=== PATIENT | male | born 1970 | race Caucasian/White ===

== ENCOUNTER 2021-01-22 13:39 | Emergency (ER) | payer OTHER ==
[~2021-01-22] VITALS: Ht 188 cm; Wt 84.4 kg
--- NOTE | 2021-01-22 13:49 | NUR ---
name called at this time, no answer in lobby or outside
--- NOTE | 2021-01-22 14:00 | NUR ---
pt name called in lobby and outside, no answer at this time
[2021-01-22 14:15] VITALS: BP 155/80
--- NOTE | 2021-01-22 14:15 | NUR ---
pt returned back to lobby
--- NOTE | 2021-01-22 14:50 | NUR ---
ermd assessed in triage room at this time
[2021-01-22 15:07] VITALS: BP 155/80
--- NOTE | 2021-01-22 15:08 | NUR ---
Patient discharged with v/s stable. Written and verbal after care instructions given and explained. Patient verbalized understanding. Ambulatory with steady gait. All questions addressed prior to discharge. Advised to follow up with PMD.
== END 2021-01-22 15:05 | disposition home or self-care (01) ==
LOC: MED 13:39
DX: S09.90XA Unspecified injury of head, initial encounter (principal); F07.81 Postconcussional syndrome; F17.210 Nicotine dependence, cigarettes, uncomplicated; Z71.6 Tobacco abuse counseling; W03.XXXA Other fall on same level due to collision with another person, initial encounter; Y93.55 Activity, bike riding; Y92.89 Other specified places as the place of occurrence of the external cause; Y99.8 Other external cause status
CPT/HCPCS: 99281

== ENCOUNTER 2023-02-16 22:02 | Emergency (ER) | payer OTHER ==
[~2023-02-16] VITALS: Ht 182.9 cm; Wt 84.8 kg
[2023-02-16 22:15] VITALS: BP 128/85; PULSE 106; RESP 22; TEMP 99.3; O2SAT 99
[2023-02-16] MEDS ORDERED: ALBUTEROL 0.083% 2.5 MG/3 ML NEBU INH ONE (23:05)
[2023-02-16] MEDS ORDERED: ALBUTEROL HFA MDI 90 MCG/ACTUATION 8 GM INH ONE (23:05)
[2023-02-16] MEDS ORDERED: KETOROLAC 30 MG/ML VIAL IM ONE (23:05)
[2023-02-16 23:16] LABS: FLU A ANTIGEN negative (NEGATIVE); FLU B ANTIGEN NEGATIVE (NEGATIVE)
[2023-02-16 23:17] VITALS: PULSE 111; RESP 18; O2SAT 96
[2023-02-17] MEDS ORDERED: AZIT250T4 PO (00:21)
[2023-02-17] MEDS ORDERED: ALBU0.0912 IH (00:21)
[2023-02-17] MEDS ORDERED: AMOX1TAB8 PO (00:21)
[2023-02-17 00:30] VITALS: BP 128/85; PULSE 111; RESP 18; TEMP 99.3; O2SAT 96
== END 2023-02-17 00:30 | disposition home or self-care (01) ==
LOC: MED 22:02
DX: J18.9 Pneumonia, unspecified organism (principal); J98.01 Acute bronchospasm; Z20.822 Contact with and (suspected) exposure to COVID-19; F17.200 Nicotine dependence, unspecified, uncomplicated; Z71.6 Tobacco abuse counseling; Z79.899 Other long term (current) drug therapy; Z79.2 Long term (current) use of antibiotics
CPT/HCPCS: 71045; 87426; 87804; 94640; 96372; 99284; J1885; J7613; Q0092

== ENCOUNTER 2023-03-22 19:20 | Emergency (ER) | payer OTHER ==
[~2023-03-22] VITALS: Ht 182.9 cm; Wt 84.8 kg
[~2023-03-22 19:20] MED LIST: ALBU0.0912 IH; AMOX1TAB8 PO; AZIT250T4 PO
[2023-03-22 19:28] VITALS: BP 122/76; PULSE 104; RESP 16; TEMP 97.9; O2SAT 97
[2023-03-22] MEDS: cephALEXin 500 MG CAP PO ONE (20:23)
[2023-03-22] MEDS: IBUPROFEN 600 MG TAB PO ONE (20:23)
[2023-03-22] MEDS: SULFAMETH/TRIMETH DS 800/160MG 1 TAB PO ONE (20:23)
[2023-03-22] MEDS ORDERED: SULF-59 PO (20:50)
[2023-03-22] MEDS ORDERED: CEPH-588 PO (20:50)
[2023-03-22] MEDS ORDERED: IBUP-2213 PO (20:50)
== END 2023-03-22 21:45 | disposition home or self-care (01) ==
LOC: MED 19:20
DX: S61.012A Laceration without foreign body of left thumb without damage to nail, initial encounter (principal); Z79.899 Other long term (current) drug therapy; W26.8XXA Contact with other sharp object(s), not elsewhere classified, initial encounter; Y93.89 Activity, other specified; Y92.89 Other specified places as the place of occurrence of the external cause; Y99.8 Other external cause status
CPT/HCPCS: 73140; 87070; 87075; 87205; 90471; 90715; 99284

== ENCOUNTER 2023-05-09 17:24 | Emergency (ER) | payer OTHER ==
[~2023-05-09] VITALS: Ht 182.9 cm; Wt 81.6 kg
[~2023-05-09 17:24] MED LIST changes: +CEPH-588 PO; +IBUP-2213 PO; +SULF-59 PO
[2023-05-09 17:58] VITALS: BP 118/75; PULSE 84; RESP 20; TEMP 97.8; O2SAT 100
[2023-05-09] MEDS: ACETAMINOPHEN 325 MG TAB PO ONE (19:30)
[2023-05-09] MEDS ORDERED: IBUP-2213 PO (21:09)
[2023-05-09] MEDS ORDERED: AMOX1TAB8 PO (21:09)
[2023-05-09] MEDS ORDERED: BACI-418 TP (21:09)
[2023-05-09 21:37] VITALS: BP 118/75; PULSE 84; RESP 20; TEMP 97.8; O2SAT 100
== END 2023-05-09 21:37 | disposition home or self-care (01) ==
LOC: MED 17:24
DX: S02.2XXA Fracture of nasal bones, initial encounter for closed fracture (principal); S02.40CA Maxillary fracture, right side, initial encounter for closed fracture; S01.511A Laceration without foreign body of lip, initial encounter; S06.0X0A Concussion without loss of consciousness, initial encounter; W18.30XA Fall on same level, unspecified, initial encounter; Y93.51 Activity, roller skating (inline) and skateboarding; Y92.89 Other specified places as the place of occurrence of the external cause; Y99.8 Other external cause status
CPT/HCPCS: 70450; 70486; 72125; 99284

== ENCOUNTER 2023-05-14 16:43 | Emergency (ER) | payer OTHER ==
[~2023-05-14] VITALS: Ht 182.9 cm; Wt 79.4 kg
[~2023-05-14 16:43] MED LIST changes: +BACI-418 TP
[2023-05-14 17:18] VITALS: BP 117/70; PULSE 57; RESP 16; TEMP 98; O2SAT 99
== END 2023-05-14 17:36 | disposition home or self-care (01) ==
LOC: MED 16:43
DX: S01.511D Laceration without foreign body of lip, subsequent encounter (principal); Z48.02 Encounter for removal of sutures; Z48.00 Encounter for change or removal of nonsurgical wound dressing; Z79.899 Other long term (current) drug therapy; X58.XXXD Exposure to other specified factors, subsequent encounter
CPT/HCPCS: 99281

== ENCOUNTER 2023-06-08 03:50 | Emergency (ER) | payer OTHER ==
[~2023-06-08] VITALS: Ht 182.9 cm; Wt 80.7 kg
[2023-06-08 04:01] VITALS: BP 133/86; PULSE 93; RESP 18; TEMP 98.3; O2SAT 100
[2023-06-08] MEDS ORDERED: CEPH-588 PO (05:06)
[2023-06-08] MEDS ORDERED: ACET-10509 PO (05:06)
[2023-06-08 05:22] VITALS: BP 125/80; PULSE 83; RESP 20; TEMP 97.6; O2SAT 94
== END 2023-06-08 05:22 | disposition home or self-care (01) ==
LOC: MED 03:50
DX: L03.116 Cellulitis of left lower limb (principal); L03.115 Cellulitis of right lower limb; Z79.1 Long term (current) use of non-steroidal anti-inflammatories (NSAID); Z79.899 Other long term (current) drug therapy
CPT/HCPCS: 99283

== ENCOUNTER 2023-07-05 10:41 | Emergency (ER) | payer OTHER ==
[~2023-07-05] VITALS: Ht 182.9 cm; Wt 84.8 kg
[~2023-07-05 10:41] MED LIST changes: +ACET-10509 PO
[2023-07-05 10:58] VITALS: BP 129/78; PULSE 70; RESP 18; TEMP 97.1; O2SAT 100
[2023-07-05] MEDS: IBUPROFEN 600 MG TAB PO ONE (12:40)
[2023-07-05 13:45] LABS: BASOPHILS # (AUTO) 0.1 K/uL (0.00-0.22); BASOPHILS % (AUTO) 0.7 % (0.0-2.0); EOSINOPHILS # (AUTO) 0.4 K/uL (0-0.4); EOSINOPHILS % (AUTO) 4.5 % (0.0-4.0); HEMATOCRIT 37.2 % (36-52); HEMOGLOBIN 12.8 g/dL (12.0-18.0); LYMPHOCYTES # (AUTO) 2.4 K/uL (2.0-11.5); MEAN CORPUSCULAR HEMOGLOBIN 31 pg (27-31); MEAN CORPUSCULAR HGB CONC 34 g/dL (33-37); MEAN CORPUSCULAR VOLUME 89.8 fL (80-94); MONOCYTES # (AUTO) 0.8 K/uL (0.8-1.0); MONOCYTES % (AUTO) 8.3 % (1.7-9.3); NEUTROPHILS # (AUTO) 6.2 K/uL (1.8-7.7); NEUTROPHILS % (AUTO) 62.5 % (42.2-75.2); PLATELET COUNT (AUTO) 311 K/uL (140-450); RED BLOOD CELL COUNT(AUTO) 4.15 MIL/uL (4.20-6.10); RED CELL DISTRIBUTION WIDTH 13.4 % (11.6-13.7); WHITE BLOOD COUNT (AUTO) 9.8 K/uL (4.8-10.8)
[2023-07-05 13:51] LABS: ANION GAP 8.6 (8-16); CALCIUM 8.7 mg/dL (8.5-10.1); CARBON DIOXIDE 31.4 mmol/L (21-32); CREATININE 1.1 mg/dL (0.6-1.3)
[2023-07-05 13:56] VITALS: O2SAT 100
[2023-07-05 13:57] LABS: ALANINE AMINOTRANSFERASE 19 U/L (12-78); ALBUMIN 3.6 g/dL (3.4-5.0); ALCOHOL, BLOOD < 3 mg/dL (<10); ALKALINE PHOSPHATASE 65 U/L (50-136); ASPARTATE AMINOTRANSFERASE 12 U/L (15-37); BILIRUBIN,DIRECT 0.1 mg/dL (0.0-0.3); SALICYLATE 2.9 mg/dL (2.8-20.0); TOTAL BILIRUBIN 0.3 mg/dL (0.0-1.0); TOTAL PROTEIN, SERUM 6.8 g/dL (6.4-8.2)
[2023-07-05 14:03] LABS: ACETAMINOPHEN < 0.5 ug/ml (10-30)
[2023-07-05 14:16] LABS: CANNABINOID, URINE POSITIVE ng/mL (NEG <=50); PHENCYCLIDINE SCREEN,URINE POSITIVE ng/mL (NEG <=25)
[2023-07-05 14:17] LABS: AMPHETAMINE, URINE POSITIVE ng/ml (NEG <=1000); BARBITURATE, URINE NEGATIVE ng/ml (NEG <=200); BENZODIAZEPINE, URINE NEGATIVE ng/mL (NEG <=200); COCAINE, URINE NEGATIVE ng/mL (NEG <=300); OPIATE, URINE NEGATIVE ng/mL (NEG <=2000)
[2023-07-05] MEDS: LIDOCAINE MPF 1% 10 MG/ML VIAL INJ ONE ×2 (14:50→15:26)
[2023-07-05] MEDS: LIDOCAINE OINTMENT 5% 35 GM TUBE TP ONE (14:50)
[2023-07-05] MEDS ORDERED: CEPH-588 PO (15:44)
[2023-07-05 16:06] VITALS: O2SAT 100
[2023-07-05] MEDS: BACITRACIN OINT 500 UNITS/GM PKT TP ONE (16:06)
[2023-07-05 16:21] VITALS: BP 133/74; PULSE 66; RESP 16; TEMP 98; O2SAT 100
== END 2023-07-05 16:21 | disposition home or self-care (01) ==
LOC: MED 10:41
DX: S01.111A Laceration without foreign body of right eyelid and periocular area, initial encounter (principal); S01.311A Laceration without foreign body of right ear, initial encounter; S60.512A Abrasion of left hand, initial encounter; S60.511A Abrasion of right hand, initial encounter; F19.10 Other psychoactive substance abuse, uncomplicated; F12.90 Cannabis use, unspecified, uncomplicated; F17.210 Nicotine dependence, cigarettes, uncomplicated; Z79.1 Long term (current) use of non-steroidal anti-inflammatories (NSAID); Z79.2 Long term (current) use of antibiotics; Z79.899 Other long term (current) drug therapy; X58.XXXA Exposure to other specified factors, initial encounter; Y93.89 Activity, other specified; Y92.89 Other specified places as the place of occurrence of the external cause; Y99.8 Other external cause status
CPT/HCPCS: 12013; 36415; 70450; 80048; 80076; 80305; 85025; 90471; 90715; 99285; G0480; G0482; J2001

== ENCOUNTER 2023-07-07 15:15 | Emergency (ER) | payer OTHER ==
[~2023-07-07] VITALS: Ht 182.9 cm; Wt 84.8 kg
[2023-07-07 15:48] VITALS: BP 99/70; PULSE 94; RESP 18; TEMP 97.5; O2SAT 98
[2023-07-07] MEDS: BACITRACIN OINT 500 UNITS/GM PKT TP ONE (18:56)
[2023-07-07] MEDS ORDERED: BACI-418 TP (19:01)
== END 2023-07-07 19:11 | disposition home or self-care (01) ==
LOC: MED 15:15
DX: Z48.00 Encounter for change or removal of nonsurgical wound dressing (principal); Z79.1 Long term (current) use of non-steroidal anti-inflammatories (NSAID); Z79.2 Long term (current) use of antibiotics; Z79.899 Other long term (current) drug therapy
CPT/HCPCS: 99282

== ENCOUNTER 2023-07-14 14:01 | Emergency (ER) | payer OTHER ==
[~2023-07-14] VITALS: Ht 182.9 cm; Wt 84.8 kg
[2023-07-14 14:22] VITALS: BP 131/91; PULSE 103; RESP 18; TEMP 97.4; O2SAT 97
[2023-07-14 14:48] VITALS: BP 130/73; PULSE 100; RESP 16; TEMP 97.4; O2SAT 99
== END 2023-07-14 14:48 | disposition home or self-care (01) ==
LOC: MED 14:01
DX: S01.311D Laceration without foreign body of right ear, subsequent encounter (principal); S01.81XD Laceration without foreign body of other part of head, subsequent encounter; F17.210 Nicotine dependence, cigarettes, uncomplicated; F12.90 Cannabis use, unspecified, uncomplicated; Z48.02 Encounter for removal of sutures; Z79.899 Other long term (current) drug therapy; X58.XXXD Exposure to other specified factors, subsequent encounter
CPT/HCPCS: 99281